=== PATIENT | female | born 1940 | race Two or more races ===

== ENCOUNTER 2024-07-15 06:47 | Day surgery (SDC) | payer MEDICARE, OTHER, SELFPAY ==
--- NOTE | 2024-07-14 08:58 | HPS.HSE ---
Family Physician
-
Family Physician: Lucila Bowling
Chief Complaint
-
Coronary artery disease. Chest pain.
History of Present Illness
The patient is an 83 year old female presenting today for recent chest pain. She describes her chest pain as a left sided 'discomfort' that is exacerbated by certain positions in bed. She reports that her chest pain is relieved with
[place] anxiolytic and homeopathic medications as needed. She also reports chronic exertional dyspnea, which has notably worsened over the last few weeks. She does have a history of moderate LAD disease as seen on her most recent cardiac
catheterization in 2020. The patient has been complaining of symptoms of raising concern for progressive coronary artery disease for quite some time but has refused an ischemia work-up in the recent past. Given the recent progression of her
symptoms, she is now agreeable to proceed with a left cardiac catheterization. She denies any current complaints today such as chest pain and shortness of breath at rest, nausea, vomiting, diarrhea, lightheadedness, dizziness, cough, sore throat, or
fever.
Medical History
Past Medical History
Past Medical History: Reports Other
Additional Past Medical History:
1. Coronary artery disease.
2. Chest pain.
3. Dyspnea on exertion.
4. Hypertension.
5. Dyslipidemia.
6. Paroxysmal atrial fibrillation, pharmacological therapy with Sotalol and oral anticoagulation with Eliquis.
7. Venous varicosities.
8. Hemorrhoids.
9. Chronic constipation.
10. Migraines.
11. Vertigo.
12. Chronic low back pain.
13. Osteoarthritis.
14. Hypothyroidism.
15. Anxiety.
Past Surgical History: Reports Other
Additional Past Surgical History:
1. Cardiac catheterization.
2. Hemorrhoidectomy.
Social History
Tobacco: Non-smoker
Alcohol: None
Personal: Single
Living: Other (She reportedly lives in a subsidized home independently. )
Family History
Family History: Not pertinent
Allergies / Home Medications
Allergy/Medication List:
Home medications:
1. Apixaban 5 mg p.o. twice a day.
2. Vitamin C 1000 mg p.o. daily.
3. Aspirin 81 mg p.o. daily.
4. Cholecalciferol 50 mcg p.o. daily.
5. DHEA 1 dose p.o. daily.
6. Colace 100 mg p.o. three times a day.
7. Lactulose 20 g p.o. daily.
8. Levothyroxine 50 mcg p.o. daily.
9. Losartan 25 mg p.o. daily.
10. Magnesium 400 mg p.o. daily.
11. Pumpkin seed extract 1 dose p.o. daily.
12. Rosuvastatin 10 mg p.o. daily.
13. Sotalol 80 mg p.o. twice a day.
14. Vitamin K2 1 dose p.o. daily.
15. Zinc 1 dose p.o. daily.
Allergies: Ibuprofen. Penicillin. Procaine.
Review of Systems
-
A 12 point ROS was completed and negative except as noted: Yes
Physical Exam
Vital Signs
Blood pressure 162/87. Heart rate 62. Respirations 18. Pulse ox 98% on room air.
Height 5 feet, 1.5 inches. Weight 67.8 kg. BMI 27.8.
Physical Exam
General: Well Developed, Well Nourished and No Apparent Distress
HEENT: NormoCephalic, Moist mucous membranes, Atraumatic and PERRLA
Respiratory: Clear
Cardiac: Regular Rhythm (with occasional ectopy. )
GI: Soft, Non Tender and Non Distended
Musculoskeletal: No Edema and Normal Gait & Station
Skin: Warm and Dry
Neuro: AO x 3 and Nonfocal/grossly intact
Laboratory Results
-
DIAGNOSTIC STUDIES as of 07/14/2023: White blood cell count 6.4. Hemoglobin 14.8. Platelet count 187,000. Sodium 138. Potassium 4.3. BUN 17. Creatinine 0.7. Glucose 92. Calcium 9.3. AST 30. ALT 25. Albumin 4.4.
EKG 07/14/2024: Sinus rhythm with premature supraventricular complexes. Left axis deviation. Low voltage QRS.
Impression/Plan
-
IMPRESSION/PLAN:
1. Coronary artery disease and chest pain: The patient is in need of a left cardiac catheterization with Dr. Josef Raman on 07/15/2024. The benefits and risks of the procedure have been explained to the patient. The patient understands these
risks and wishes to proceed. She is aware to hold her Eliquis starting 07/13/2024. While holding her Eliquis, she will start Aspirin in preparation for her procedure. She will continue Aspirin daily, up to and including the morning of her
catheterization.
[2024-07-14 12:38] VITALS: BMI 27.8
[2024-07-15] VITALS (22 sets, daily range): BP systolic 107–153; BP diastolic 60–87
[2024-07-15] MEDS: LOW STRENGTH ASPIRIN 243 MG PO (08:00)
--- NOTE | 2024-07-15 09:02 | ITS.CL.PN ---
[employer] - Procedure Note
Procedure
Procedure Note:
CARDIAC CATHETERIZATION REPORT
Date of Procedure: 07/15/2024
Referring: Dr. Balaji Morales MD
Indication: atypical chest pain
PROCEDURE(S)
1. left heart catheterization
2. coronary angiography
3. iFR LAD
4. IVUS LAD
5. PCI with TESSA to LAD
ACCESS: 6F right radial artery (closure: radial band)
CATHETERS
1. 6F JR4
2. 6F JL3.5
3. 6F EBU 3.5 guide catheter
MODERATE SEDATION: 64 minutes of moderate sedation was utilized. An independent emergency medical service coordinator was present to assist with and help manage the patient's level of consciousness and physiologic status.
ULTRASOUND GUIDED VASCULAR ACCESS (right radial artery): Ultrasound was utilized for vascular access. The vessel was visualized under ultrasound and noted to be patent. An image of the vessel was stored permanently in the patient's medical record.
Under direct ultrasound guidance, vascular access was obtained using a modified Seldinger technique and a 6 [place] sheath was placed.
HEMODYNAMIC DATA
LV 152/10 (EDP 21) mmHg
AO 155/74 (mean 107) mmHg
CORONARY ANGIOGRAPHY
Dominance: right
LM: large, normal
LAD: large vessel giving rise to a small D1, small D2, moderate caliber D3, and small D4. There is a long segment of mild disease extending from just after D2 past D3. There is a focal area with ~60% stenosis just after D3. This was further
interrogated by iFR.
LCx: large vessel giving rise to a large OM1 and moderate caliber OM2. There are mild luminal irregularities.
RCA: Large vessel giving rise to a large RPDA and several small RPL branches. There is mild nonobstructive disease.
iFR of mid LAD
An Omni wire was flushed and zeroed outside the body and then advanced to the left main. The wire introducer was removed and the catheter flushed with saline, after which pressure of the wire and guide were normalized. The wire was advanced to the
mid LAD and iFR recorded at 0.88, 0.88, and 0.88. iFR pullback was performed noting a focal pattern at the location of the severe stenosis with a minor contribution from the diffuse proximal disease. On return to the left main, iFR appropriately
normalized to ~1.0, confirming lack of wire drift.
IVUS guided PCI with TESSA to mid LAD
Heparin was administered to achieve ACT greater than 300. Over the pressure wire used for iFR, a 2.0x12 mm balloon was advanced to the site of the lesion and inflated to nominal pressure with full expansion. IVUS was performed and demonstrated a 2.5
mm distal reference vessel diameter and mild calcification. A 2.5x12 mm Diego [place] drug-eluting stent was deployed at nominal pressure, followed by post dilation of the entire stent save the distal edge with a 2.5x8 mm NC balloon to 16 kandice.
Final IVUS demonstrated full stent expansion, appropriate sizing, and no edge dissection. Final angiographic result was outstanding. The wire and guide were removed and a TR band placed. The patient was loaded with 600 mg of Plavix.
CONCLUSIONS
1. Single-vessel obstructive coronary artery disease as described, with iFR positive stenosis in the mid-LAD.
2. Mildly elevated LV filling pressure no aortic stenosis
3. Successful IVUS guided PCI of the mid LAD with 2.5 x 12 mm Diego [place] drug-eluting stent postdilated to high-pressure with a 2.5 mm NC balloon
RECOMMENDATIONS
1. expectant management after cardiac catheterization via right radial approach
2. SAPT with Plavix while on Eliquis. After 6 months patient can be transition to aspirin and Eliquis. Should patient stop taking Eliquis before 6 months, they should be transitioned to DAPT with aspirin and Plavix.
3. aggressive secondary prevention of coronary artery disease
Copy to: Dr. Balaji Morales MD (hospital cna); Dr. Lucila Bowling MD (PCP)
Signed: Josef Raman MD, PhD
[2024-07-15] MEDS: NSS 1000 IV (10:48)
[2024-07-15 12:40] LABS: ACT-LR - POC > 397 Seconds (116-155)
[2024-07-15 12:40] LABS: ACT-LR - POC > 397 Seconds (116-155)
--- NOTE | 2024-07-15 15:49 | W.PN.UPDATE ---
Update Note
Progress Note Update
83 yo WF s/p PCI LAD x1 TESSA (same day). She denies cp, sob, melissa diet, voiding, amb w/o dizziness, R rad site c/d/i, EKG no ST changes SR. She will resume Eliquis tonight with Plavix for at least 6 mo, reinforced compliance. We will increase
rosuvastatin to 20mg daily, she was not consistently taking this med but agrees to take now. Cardiac rehab c/s. She will f/u Dr. Morales in 2 weeks. She is for d/c home after 4pm..
CONCLUSIONS
1. Single-vessel obstructive coronary artery disease as described, with iFR positive stenosis in the mid-LAD.
2. Mildly elevated LV filling pressure no aortic stenosis
3. Successful IVUS guided PCI of the mid LAD with 2.5 x 12 mm Diego [place] drug-eluting stent postdilated to high-pressure with a 2.5 mm NC balloon
RECOMMENDATIONS
1. expectant management after cardiac catheterization via right radial approach
2. SAPT with Plavix while on Eliquis. After 6 months patient can be transition to aspirin and Eliquis. Should patient stop taking Eliquis before 6 months, they should be transitioned to DAPT with aspirin and Plavix.
3. aggressive secondary prevention of coronary artery disease
Copy to: Dr. Balaji Morales MD (educational advisor); Dr. Lucila Bowling MD (PCP)
== END 2024-07-15 16:00 | disposition home or self-care (01) ==
LOC: CATH 06:47
PROVIDERS: ATTENDING PHYSICIAN Student in an Organized Health Care Education/Training Program; FAMILY PHYSICIAN Family Medicine; OTHER PHYSICIAN Internal Medicine Cardiovascular Disease
DX: I25.10 Atherosclerotic heart disease of native coronary artery without angina pectoris (principal); R07.89 Other chest pain; I10 Essential (primary) hypertension; E78.5 Hyperlipidemia, unspecified; I48.0 Paroxysmal atrial fibrillation; Z87.19 Personal history of other diseases of the digestive system; I83.90 Asymptomatic varicose veins of unspecified lower extremity; K59.09 Other constipation; G43.909 Migraine, unspecified, not intractable, without status migrainosus; R42 Dizziness and giddiness; G89.29 Other chronic pain; M19.90 Unspecified osteoarthritis, unspecified site; E03.9 Hypothyroidism, unspecified; F41.9 Anxiety disorder, unspecified; Z79.01 Long term (current) use of anticoagulants; Z79.890 Hormone replacement therapy; Z79.899 Other long term (current) drug therapy; Z79.82 Long term (current) use of aspirin; Z88.6 Allergy status to analgesic agent; Z88.0 Allergy status to penicillin; Z79.02 Long term (current) use of antithrombotics/antiplatelets
CPT/HCPCS: 93799; 92978; 99152; 99153; 76937; 85347; 93005; 93458; C1725; C1753; C1769; C1874; C1894; C9600; Q9967